=== PATIENT | female | born 1960 | race Caucasian/White ===

== ENCOUNTER 2019-02-12 09:13 | Observation (INO) ==
[2019-02-12] MEDS ORDERED: Isovue-370 500 ML BOTTLE IVP ONE (09:16)
[2019-02-12 09:36] LABS: Hematocrit 43.9 % (35.3-44.9); Hemoglobin 14.7 g/dL (11.5-15.4); Mean Corpuscular HGB Conc 33.5 g/dL (31.6-35.5); Mean Corpuscular Hemoglobin 28.6 pg (28.0-33.3); Mean Corpuscular Volume 85.4 fL (83.0-100.0); Mean Platelet Volume 11.7 fL (9.4-12.4); Platelet Count 105 K/mcL (140-400); Red Blood Count 5.14 M/mcL (3.82-4.97); Red Cell Distribution Width 13.5 % (11.5-14.5); White Blood Count 6.8 K/mcL (4.3-11.1)
--- NOTE | 2019-02-12 09:39 | Emergency Department Note ---
Disposition Clinical Impression: TIA (transient ischemic attack) Disposition: Admitted As Inpatient Condition: Fair Time of Disposition: 10:33 General Adult HPI - General Stated complaint: stroke symptoms Time Seen by Provider: 02/12/19 09:16 Nursing Notes Reviewed: Yes Vital Signs Reviewed: Yes - History of Present Illness HPI Narrative: I did see the patient immediately upon arrival and also spoke with the paramedics and the story is that she developed slurred speech this morning and she had last known normal at 805 this morning and the patient's symptoms still include some slurred speech according to the however she also has had left-sided weakness for the last 7 days. She has had slurred speech in the past. Patient denies any symptoms at this time. states that she did see her psychiatrist last month and they said she was unable to take medications on her own. states that she does not normally know the day of the week. The patient denies any localized numbness or weakness of the extremities at this time. She denies any slurred speech, facial droop or confusion however history is somewhat unreliable from the patient as she does not know the day of the week and does have some chronic confusion however she does have other parts of the history that she is able to give in a seemingly reliable fashion. She denies any fever, respiratory symptoms, blood in the urine or stool. According to the she has had frequent falls. Her fingerstick blood sugar was in the 200s according to paramedics. Social history: Stopped smoking 5 years ago, no alcohol or drugs Review of Systems: Constitutional: No fever Vision: No blurred vision ENT: No rhinorrhea Respiratory: No cough Allergic: No allergies : No blood in urine GI: No blood in stool Hematologic: + bruising Dermatologic: No skin rash Musculoskeletal: No pain in the extremities Neuro: No numbness of the extremities Physical Exam CONSTITUTIONAL: Alert and oriented X3, well-nourished, well appearing, in no apparent distress HEAD: Normocephalic; atraumatic. EYES: PERRL, no scleral icterus. NOSE: The nose is normal in appearance without rhinorrhea RESP: Normal chest excursion with respiration; breath sounds clear and equal bilaterally; no wheezes, rhonchi, or rales CARD: Regular rhythm, without murmurs, rub or gallop ABD: Non-distended; non-tender, soft,without rigidity, rebound or guarding SKIN: Normal for age and race; warm and dry; no apparent lesions Neuro: See NIH stroke scale. Some slurred speech with a stroke scale of 2 also based on not knowing day of the week ( states is chronic for her) Course Vital Signs Temperature 97.9 F 02/12/19 09:28 Pulse Rate 106 02/12/19 09:28 Respiratory Rate 18 02/12/19 09:28 Blood Pressure 140/78 02/12/19 09:28 O2 Sat by Pulse Oximetry 93 02/12/19 09:28 Temperature 97.9 F 02/12/19 09:28 Pulse Rate 106 02/12/19 09:28 Respiratory Rate 18 02/12/19 09:28 Blood Pressure 140/78 02/12/19 09:28 O2 Sat by Pulse Oximetry 93 02/12/19 09:28 Oxygen Delivery Oxygen Delivery Room Air Medical Decision Making - MDM Narrative Medical decision making narrative: Patient did go immediately to CT from the cot without going to the room first. I did speak with the radiologist who told me the CT scan is negative. CTA was not done because she does have an allergy to contrast which includes a rash. Based on her exam she does not have a new acute large vessel occlusion. We are notifying the stroke neurologist at this time and they will speak with the patient through the tele neurology system. Patient will be admitted to the hospital. Lab results are pending. She does give a fairly good history but thinks the day of the week is Sunday. She does know the month and the year. She is alert and does answer questions easily and readily. [id number] I see the patient on multiple occasions. I did speak with the patient and the family. I did review the EKG which shows sinus tachycardia with a rate of 104 but without acute ischemic change. The case was discussed with the hospitalist and the patient will be admitted for further evaluation of possible TIA. The stroke neurologist from [facility] agrees that thrombolytics are not indicated at this time. The stroke scale is 2 based on her not knowing the day of the week which is chronic and also the minimal slurred speech which states has also occurred multiple times in the past. At this time she is conversational. She does understand the need for admission. 1032 - Medical Records Medical records reviewed: Yes I reviewed the patient's medical records. - Lab Data Lab results reviewed: Yes I reviewed the patient's lab results. Result diagrams: 02/12/19 09:30 02/12/19 09:30 Lab Results 02/12/19 02/12/19 02/12/19 Range/Units 09:30 09:30 09:30 WBC 6.8 (4.3-11.1) K/mcL RBC 5.14 H (3.82-4.97) M/mcL Hgb 14.7 (11.5-15.4) g/dL Hct 43.9 (35.3-44.9) % MCV 85.4 (83.0-100.0) fL MCH 28.6 (28.0-33.3) pg MCHC 33.5 (31.6-35.5) g/dL RDW 13.5 (11.5-14.5) % Plt Count 105 L (140-400) K/mcL MPV 11.7 (9.4-12.4) fL PT 13.0 H (9.4-12.1) Seconds INR 1.1 Sodium 136 (136-145) mEq/L Potassium 3.9 (3.5-5.1) mEq/L Chloride 105 (98-107) mEq/L Carbon Dioxide 24 (23-29) mEq/L BUN 20 (8-23) mg/dL Creatinine 1.08 (0.60-1.20) mg/dL Est GFR ( Amer) > 60 (> 60) Est GFR (Non-Af Amer) 52 L (> 60) BUN/Creatinine Ratio 19 (6-26) Glucose 267 H (70-105) mg/dL Calculated Osmolality 294 (280-300) Calcium 8.5 L (8.6-10.3) mg/dL Troponin I < 0.03 (< 0.04) ng/mL - Radiology Data Radiology results reviewed: Yes I reviewed the patient's radiology results. Critical Care Time Critical Care Time: No NIH Stroke Scale - Level of Consciousness LOC: Alert - LOC Questions LOC Questions: Answers one correctly - LOC Commands LOC Commands: Performs both correctly - Best Gaze Best Gaze: Normal - Visual Visual: No visual loss - Facial Palsy Facial Palsy: Normal - Motor Arms Motor Arm-Left: No drift for 10 seconds Motor Arm-Right: No drift for 10 seconds - Motor Legs Motor Leg-Left: No drift for 5 seconds Motor Leg-Right: No drift for 5 seconds - Limb Ataxia Limb Ataxia: Normal, No Ataxia - Sensory Sensory: Normal - Best Language Best Language: No aphasia - Dysarthria Dysarthria: Mild, slurs some words - Extinction and Inattention Extinction and Inattention: Normal - NIHSS Total Score NIHSS Total Score: 2
[2019-02-12 09:44] LABS: INR 1.1
[2019-02-12 09:59] LABS: BUN/Creatinine Ratio 19 (6-26); Blood Urea Nitrogen 20 mg/dL (8-23); Calcium 8.5 mg/dL (8.6-10.3); Carbon Dioxide 24 mEq/L (23-29); Chloride 105 mEq/L (98-107); Glucose 267 mg/dL (70-105); Osmolality,Calculated 294 (280-300); Potassium 3.9 mEq/L (3.5-5.1); Sodium 136 mEq/L (136-145); Troponin I < 0.03 ng/mL (< 0.04); eGFR For African Americans > 60 (> 60); eGFR For Non-African Americans 52 (> 60)
[2019-02-12 11:31] LABS: Bilirubin,Urine Negative (Negative); Blood,Urine Negative (Negative); Clarity,Urine Clear (Clear); Color,Urine Yellow (Yellow); Glucose,Urine (UA) >=1000 mg/dL (Normal); Ketones,Urine Negative (Negative); Leukocyte Esterase,Urine Negative (Negative); Nitrite,Urine Negative (Negative); Protein,Urine Trace mg/dL (Neg-Trace); Specific Gravity,Urine 1.023 (1.010-1.025); Urobilinogen,Urine Normal (Normal)
--- NOTE | 2019-02-12 11:34 | Internal Med History&Physical ---
Date of Encounter: 02/12/19 Time of Encounter: 11:34 Internal Medicine - H&P: HPI Chief complaint: slurred speech History of present illness: Ms. Torres is a 58 year old female Hope presented to the ER with sudden SLURRED speech and frequent falls. They are staff reported that the patient have left-sided weakness for the last 7 days, however the patient and her brenda ghter denied any weakness in the left side, but they reported that the patient was visiting her daughter and then suddenly. The floor was no reported loss of consciousness, she denies weakness or tingling numbness, loss controlled of urine or stool. Family stated that her speech is different from her baseline other than that there is no significant abnormalities. stroke alert was called and OC team was involved in the patient care and decided that the patient is not candidate for thrombolytic treatment. At bedside The patient was alert and oriented to place and time and person, neurologically intact, for further evaluation and management of TIA Past Med Surg Social Fam HX - Past Medical History Medical history: non-contributory - Social History Smoking Status: Former smoker Smokeless Tobacco Status: No Alcohol use: none Drug use: none - Family History Brother Hx Family Endocrine Disorder: Yes (DM) Internal Medicine - H&P: Meds Atorvastatin Calcium [Lipitor] 20 mg PO DAILY 02/12/19 [History] Baclofen [Lioresal] 10 mg PO BID 02/12/19 [History] Gabapentin [Neurontin] 300 mg PO TID 02/12/19 [History] Haloperidol [Haldol] 5 mg PO HS 02/12/19 [History] Lisinopril 30 mg PO DAILY 02/12/19 [History] Lurasidone HCl [Latuda] 80 mg PO HS 02/12/19 [History] Pantoprazole Sodium [Protonix] 40 mg PO DAILY 02/12/19 [History] glipiZIDE [Glipizide] 20 mg PO BID 02/12/19 [History] hydrOXYzine HCl [Hydroxyzine HCl] 25 mg PO HS 02/12/19 [History] Allergy/AdvReac Type Severity Reaction Status Date / Time azithromycin Allergy Hives Verified 02/13/19 10:27 Penicillins Allergy Hives Verified 02/13/19 10:27 aspirin AdvReac Nausea Verified 02/13/19 10:27 All Systems PM: A 10-system review of systems was performed and is negative for pertinent findings except as documented above in the HPI. - Constitutional Vitals: Temp Pulse Resp BP Pulse Ox 97.9 F 106 18 140/78 93 02/12/19 09:28 02/12/19 09:28 02/12/19 09:28 02/12/19 09:28 02/12/19 09:28 General appearance: Present: A&O X 3 Exam: . - Head Head exam: Present: atraumatic, normocephalic - Neck Neck exam general surgery: Present: supple, trachea midline. Absent: lymphadenopathy - Respiratory Respiratory exam: Present: CTAB. Absent: accessory muscle use, rales, rhonchi, wheezes - Cardiovascular Cardiovascular exam: Present: RRR, +S1, +S2. Absent: diastolic murmur, gallop, rubs, systolic murmur - GI/Abdominal GI/Abdominal exam: Present: normal bowel sounds, soft, no peritoneal signs. Absent: distended, tenderness - Extremities Exam Extremities exam: Present: warm, radial pulses palpable and symmetrical. Absent: calf tenderness, cyanotic, pedal edema - Neurological Exam Neurological exam: Present: CN II-XII intact, oriented X3, no focal deficits. Absent: pronater drift, facial droop, speech deficit Internal Med - H&P Results - Labs CBC & Chem 7: 02/13/19 02:08 02/13/19 02:08 Labs: Short CBC 02/12/19 Range/Units 09:30 WBC 6.8 (4.3-11.1) K/mcL Hgb 14.7 (11.5-15.4) g/dL Hct 43.9 (35.3-44.9) % Plt Count 105 L (140-400) K/mcL BMP 02/12/19 09:30 Sodium 136 Potassium 3.9 Chloride 105 Carbon Dioxide 24 BUN 20 Creatinine 1.08 Glucose 267 H Calcium 8.5 L Cardiac Enzymes 02/12/19 Range/Units 09:30 Troponin I < 0.03 (< 0.04) ng/mL Urine 02/12/19 Range/Units 11:19 Urine Color Yellow (Yellow) Urine Clarity Clear (Clear) Urine pH 6.0 (5.0-8.0) pH Units Ur Specific [place] 1.023 (1.010-1.025) Urine Protein Trace (Neg-Trace) mg/dL Urine Glucose (UA) >=1000 H (Normal) mg/dL - Impressions ITS Impressions Head CT 02/12/19 09:17 IMPRESSION: 1.No acute intracranial abnormality. These findings were discussed with Bebeto Muniz at 9:33 a.m. 02/12/2019. D/ / Jt Paulson MD / Jt Paulson MD Interpreting Provider: Jt Paulson MD Chest X-Ray 02/12/19 10:02 IMPRESSION: 1. No active pulmonary disease. D/ / Jt Paulson MD / Jt Paulson MD Interpreting Provider: Jt Paulson MD - Assessment and Plan (1) TIA (transient ischemic attack) Current Visit: Yes Status: Acute Assessment and plan: There is inconsistency in the reported history, at that time patient is denying any weakness on the left side and denied having history of that, however the history of slurred speech with a concern for possible TIA PLAN: - Telemetry - MRI - Cardiac enzymes x 2 q 8hr - EKG now and in AM - 2D Echo - Carotid duplex - UA (2) Diabetes mellitus Current Visit: Yes Status: Acute Assessment and plan: we will restart the patient and insulin sliding scale with moderate coverage Qualifiers: Qualified Code(s): E11.9 - Type 2 diabetes mellitus without complications (3) Hyperlipidemia Current Visit: Yes Status: Acute Assessment and plan: we'll continue statin and obtain fasting lipid profile Qualifiers: Hyperlipidemia type: unspecified Qualified Code(s): E78.5 - Hyperlipidemia, unspecified (4) Hypertension Current Visit: Yes Status: Acute Assessment and plan: we'll continue home medication and continue to monitor blood pressure while inpatient and adjust regimen accordingly Qualifiers: Hypertension type: essential hypertension Qualified Code(s): I10 - Essential (primary) hypertension (5) GERD (gastroesophageal reflux disease) Current Visit: Yes Status: Acute Assessment and plan: we will continue home proton pump inhibitors Qualifiers: Esophagitis presence: without esophagitis Qualified Code(s): K21.9 - Gastro-esophageal reflux disease without esophagitis - Time Spent With Patient Total time spent is greater than 50% in coordination of care (as documented) at patient's floor/unit and/or counseling patient:
[2019-02-12] MEDS ORDERED: Naloxone 0.4 MG/ML INJ IVP PRN (13:28)
[2019-02-12] MEDS ORDERED: Ondansetron 4 MG/2 ML VIAL IVP PRN (13:42)
[2019-02-12] MEDS ORDERED: Perflutren Lipid Microsphere 1.3 ML in 0.9 % Sodium Chloride 8.7 ML IVP ONE (16:35)
[2019-02-12] MEDS ORDERED: Perflutren Lipid Microsphere 2 ML VIAL ONE (16:47)
--- NOTE | 2019-02-12 18:27 | Electrocardiograph Report ---
[facility] [employer] Test Date: 2019-02-12 Pat Name: Cheryl Torres Department: EXAM5 Room: [facility] Gender: F Restaurant Greeter: : 1960 Requested By: Bebeto Muniz Order Number: [id number] Reading MD: Caleb Michel Measurements Intervals [place] Rate: 104 P: 71 [place]: 190 QRS: -37 QRSD: 77 T: 57 QT: 331 QTc: 436 Interpretive Statements Sinus tachycardia Left axis deviation Low voltage, precordial leads Electronically Signed On 02-12-2019 18:25:12 EDT by Caleb Michel
[2019-02-12] MEDS ORDERED: Dextrose Gel 15 GM/37.5 ML TUBE PO PRN ×2 (22:36)
[2019-02-12] MEDS ORDERED: D5% in Water 1,000 ML IVC PRN (22:36)
[2019-02-12] MEDS ORDERED: *HR* Dextrose 50 % in Water (Syg) 50 ML SYRINGE IVP PRN (22:36)
[2019-02-12] MEDS: Gabapentin 300 MG CAPSULE PO SCH (23:13)
[2019-02-12] MEDS: Acetaminophen 325 MG TABLET PO PRN (23:14)
[2019-02-12] MEDS: hydrOXYzine pamoate 25 MG CAPSULE PO SCH (23:51)
[2019-02-12] MEDS: Insulin LISPRO 300 UNITS/3 ML VIAL SQ SCH (23:51)
[2019-02-13 02:30] LABS: Basophils % 0.3 %; Eosinophils # 0.1 K/mcL (0.0-0.6); Eosinophils % 1.9 %; Hematocrit 42.1 % (35.3-44.9); Hemoglobin 14.4 g/dL (11.5-15.4); Immature Granulocytes % 0.1 % (0-4); Lymphocytes # 2.4 K/mcL (0.6-4.6); Lymphocytes % 32.5 %; Mean Corpuscular HGB Conc 34.2 g/dL (31.6-35.5); Mean Corpuscular Hemoglobin 29.5 pg (28.0-33.3); Mean Corpuscular Volume 86.3 fL (83.0-100.0); Mean Platelet Volume 11.4 fL (9.4-12.4); Monocytes # 0.6 K/mcL (0.0-1.3); Monocytes % 8.5 %; Neutrophils # 4.2 K/mcL (1.6-8.9); Platelet Count 106 K/mcL (140-400); Red Blood Count 4.88 M/mcL (3.82-4.97); Red Cell Distribution Width 13.8 % (11.5-14.5); Segmented Neutrophils % 56.7 %; White Blood Count 7.4 K/mcL (4.3-11.1)
[2019-02-13 02:43] LABS: Alanine Aminotransferase 17 Units/L (7-52); Albumin 3.4 g/dL (3.5-5.7); Albumin/Globulin Ratio 1.4 (1.1-2.2); Alkaline Phosphatase 94 Units/L (34-104); Aspartate Amino Transferase 13 Units/L (13-39); BUN/Creatinine Ratio 19 (6-26); Blood Urea Nitrogen 17 mg/dL (8-23); Calcium 8.9 mg/dL (8.6-10.3); Carbon Dioxide 25 mEq/L (23-29); Chloride 105 mEq/L (98-107); Chol/HDL Ratio 3.3 (0-4.9); Cholesterol 118 mg/dL (< 200); Globulin 2.4 g/dL (2.4-3.5); Glucose 202 mg/dL (70-105); HDL Cholesterol 36 mg/dL (40-59); LDL Cholesterol,Calculated 67 mg/dL (0-99); Magnesium 1.9 mg/dL (1.6-2.6); Osmolality,Calculated 293 (280-300); Phosphorous 3.3 mg/dL (2.7-4.5); Potassium 3.9 mEq/L (3.5-5.1); Sodium 138 mEq/L (136-145); Total Protein 5.8 g/dL (6.4-8.9); Triglycerides 73 mg/dL (< 150); eGFR For African Americans > 60 (> 60); eGFR For Non-African Americans > 60 (> 60)
[2019-02-13 07:13] LABS: INR 1.1; Prothrombin Time 12.2 Seconds (9.4-12.1)
[2019-02-13 07:15] LABS: Activated Partial Thrombo Time 22.7 Seconds (26.0-36.0)
[2019-02-13] MEDS: Gabapentin 300 MG CAPSULE PO SCH ×3 (08:45→20:54)
[2019-02-13] MEDS: Insulin LISPRO 300 UNITS/3 ML VIAL SQ SCH ×4 (08:46→20:54)
--- NOTE | 2019-02-13 14:11 | Internal Med Progress Note ---
Hospitalist Progress Note - Encounter Date of Encounter: 02/13/19 Time of Encounter: 14:08 - Subjective Interval History: Patient was seen and examined at bedside. Patient was evaluated by PT recommending inpatient rehabilitation discussed with the patient who verbalized understanding - Exam Vitals: Temp Pulse Resp BP Pulse Ox 97.4 F L 98 18 118/76 95 02/13/19 11:58 02/13/19 11:58 02/13/19 11:58 02/13/19 11:58 02/13/19 11:58 Exam: Skin: Free of rash and discoloration. Eyes: Sclera is white. There is no discharge from eyes. ENMT: Oral/pharyngeal mucosa is normal in appearance. There is no discharge from nose or ears. Respiratory: Normal breath sounds with no crackles and wheezes bilaterally. CV: Heart is regular with no gallop or murmur. GI: Abdomen is flat and soft with no palpable mass or visceromegaly. : There is no tenderness in patient's flanks bilaterally. Neuro exam: He has good strength in upper and lower extremities. He has normal eye movements. Psychiatric: He has normal affect. His thought process is appropriate to the situation. - Assessment and Plan (1) TIA (transient ischemic attack) Current Visit: Yes Status: Acute Assessment and Plan: There is inconsistency in the reported history, at that time patient is denying any weakness on the left side and denied having history of that, however the history of slurred speech with a concern for possible TIA PLAN: - Telemetry - MRI - Cardiac enzymes x 2 q 8hr - EKG now and in AM - 2D Echo - Carotid duplex - UA 02/13 No focal deficits noted Carotid duplex with nonstenotic plaque bilaterally Cardiac echo with EF of 6065% Brain MRI with no acute infarct Urinalysis unremarkable Patient was evaluated by PT and OT recommending inpatient rehabilitation school social worker consulted and patient would likely place at signature (2) Diabetes mellitus Current Visit: Yes Status: Acute Assessment and Plan: Accu-Cheks before meals at bedtime insulin sliding scale with moderate coverage (3) Hyperlipidemia Current Visit: Yes Status: Acute Assessment and Plan: we'll continue statin and obtain fasting lipid profile (4) Hypertension Current Visit: Yes Status: Acute Assessment and Plan: we'll continue home medication and continue to monitor blood pressure while inpatient and adjust regimen accordingly (5) GERD (gastroesophageal reflux disease) Current Visit: Yes Status: Acute Assessment and Plan: we will continue home proton pump inhibitors - Time Spent with Patient Total time spent is greater than 50% in coordination of care (as documented) at patient's floor/unit and/or counseling patient: Internal Medicine: Result - Labs CBC & Chem 7: 02/13/19 02:08 02/13/19 02:08 Labs: Short CBC 02/13/19 Range/Units 02:08 WBC 7.4 (4.3-11.1) K/mcL Hgb 14.4 (11.5-15.4) g/dL Hct 42.1 (35.3-44.9) % Plt Count 106 L (140-400) K/mcL Neutrophils # 4.2 (1.6-8.9) K/mcL BMP 02/13/19 02:08 Sodium 138 Potassium 3.9 Chloride 105 Carbon Dioxide 25 BUN 17 Creatinine 0.89 Glucose 202 H Calcium 8.9 Liver Function 02/13/19 Range/Units 02:08 Total Bilirubin 1.0 (0.3-1.0) mg/dL AST 13 (13-39) Units/L ALT 17 (7-52) Units/L Alkaline Phosphatase 94 (34-104) Units/L Albumin 3.4 L (3.5-5.7) g/dL - ABG Interpretation ABG results: PT/INR, D-dimer PT 12.2 Seconds (9.4-12.1) H 02/13/19 06:46 - Impressions Impressions Brain MRI 02/12/19 13:26 IMPRESSION: No acute infarct. D/ / Adriel Griffith MD / Adriel Griffith MD Interpreting Provider: Adriel Griffith MD Echocardiogram 02/12/19 13:27 Impressions: LVEF 60-65%. Mild left ventricular diastolic dysfunction. Normal right ventricular structure and function. Mild aortic regurgitation. No pulmonary hypertension. Suboptimal images to detect PFO with saline contrast injection. Left Ventricular Wall Motion: Rest Echo Findings All wall segments showed normal motion. Findings: Study Quality * Technically adequate exam. ECG Findings * Normal sinus rhythm. Left Ventricle * LVEF 60-65%. * Normal LV chamber size, wall thickness and function. * Mild left ventricular diastolic dysfunction. * Definity echo contrast was used. Right Ventricle * Normal right ventricular structure and function. Left Atrium * Normal left atrial size. Right Atrium * Normal right atrial size. Aortic Valve * Aortic valve not well visualized. * No aortic stenosis. * Mild aortic regurgitation. Mitral Valve * No mitral regurgitation. * Mitral valve not well visualized. * No mitral stenosis. Tricuspid Valve * Tricuspid valve not well visualized. * Trace tricuspid regurgitation. * Estimated RA pressure is 3 mmHg. Pulmonic Valve * Pulmonic valve is not well visualized. * No pulmonic stenosis. * No pulmonic regurgitation. Pulmonary Artery * Pulmonary artery not well visualized. Aorta * Normally sized aortic root. Pericardium * There is no pericardial effusion present. Interatrial Septum * No evidence of PFO by color Doppler. IVC * Normal IVC dimensions and inspiratory collapse. Consult Discharge Plan - Plan Referrals: Marlee De León LOGGING TRACTOR OPERATOR [Advanced Practice Nurse] - (Appointment has been requested.) (3) Hyperlipidemia Qualifiers: Hyperlipidemia type: unspecified Qualified Code(s): E78.5 - Hyperlipidemia, unspecified (4) Hypertension Qualifiers: Hypertension type: essential hypertension Qualified Code(s): I10 - Essential (primary) hypertension (5) GERD (gastroesophageal reflux disease) Qualifiers: Esophagitis presence: without esophagitis Qualified Code(s): K21.9 - Gastro- esophageal reflux disease without esophagitis
[2019-02-13] MEDS: hydrOXYzine pamoate 25 MG CAPSULE PO SCH (20:54)
[2019-02-13] MEDS: Acetaminophen 325 MG TABLET PO PRN (21:13)
[2019-02-13] MEDS ORDERED: traMADol 50 MG TABLET PO ONE (23:09)
[2019-02-14] MEDS: Insulin LISPRO 300 UNITS/3 ML VIAL SQ SCH ×2 (09:12→12:51)
[2019-02-14] MEDS: Gabapentin 300 MG CAPSULE PO SCH ×2 (09:13→17:40)
[2019-02-14] MEDS ORDERED: traMADol 50 MG TABLET PO PRN (09:37)
[2019-02-14] MEDS ORDERED: Insulin LISPRO 300 UNITS/3 ML VIAL SQ SCH ×2 (14:21→14:22)
--- NOTE | 2019-02-14 14:24 | Internal Med Progress Note ---
Hospitalist Progress Note - Encounter Date of Encounter: 02/14/19 Time of Encounter: 14:22 - Subjective Interval History: Ms. Torres is a 58 year old female pt presented to the ER with sudden onset of slurred speech and frequent falls. Stroke alert was called and OC team was involved in the patient care and decided that the patient is not candidate for thrombolytic treatment. She was admitted in the hospital placed on veterinary pharmacologist. Her symptoms improved. Patient still complaining about generalized weakness and lethargic. - Exam Vitals: Temp Pulse Resp BP Pulse Ox 98.1 F 87 16 125/80 96 02/14/19 10:45 02/14/19 10:45 02/14/19 10:45 02/14/19 10:45 02/14/19 10:45 Exam: Gen: Alert, awake, Oriented to time,place and person Chest: Diminished breath sounds B/L, No wheezing, No crackles, No rales Heart: S1S2+ RRR No murmurs Abd: Soft, NT, BS +, No organomegaly Ext: No edema, pulses are palpable, No calf tenderness Neuro : No acute focal neuro deficits noticed.. No pronator drift, no foot drop noticed Skin: No rash. - Assessment and Plan (1) TIA (transient ischemic attack) Current Visit: Yes Status: Acute Assessment and Plan: MRI of head negative for CVA unable to start her ASA since she is allergic to it cont Lipitor (2) Diabetes mellitus Current Visit: Yes Status: Acute Assessment and Plan: Fairly controlled changed ISS to Medium Also started her on Levemir 15 U BID (3) Hyperlipidemia Current Visit: Yes Status: Acute Assessment and Plan: on Statin (4) Hypertension Current Visit: Yes Status: Acute Assessment and Plan: Stable BP with current meds (5) GERD (gastroesophageal reflux disease) Current Visit: Yes Status: Acute Assessment and Plan: on PPI (6) Physical deconditioning Current Visit: Yes Status: Acute Assessment and Plan: PT / OT eval recommend ECF placement CM / SW working on it waiting for approval (7) Depression Current Visit: Yes Status: Acute Assessment and Plan: cont home meds - Time Spent with Patient Total time spent is greater than 50% in coordination of care (as documented) at patient's floor/unit and/or counseling patient: Internal Medicine: Result - Labs CBC & Chem 7: 02/13/19 02:08 02/13/19 02:08 - ABG Interpretation ABG results: PT/INR, D-dimer PT 12.2 Seconds (9.4-12.1) H 02/13/19 06:46 Consult Discharge Plan - Plan Referrals: [facility]lee [facility] LPN [Advanced Practice Nurse] - (Appointment has been requested.) (2) Diabetes mellitus Qualifiers: Qualified Code(s): E11.9 - Type 2 diabetes mellitus without complications (3) Hyperlipidemia Qualifiers: Hyperlipidemia type: unspecified Qualified Code(s): E78.5 - Hyperlipidemia, unspecified (4) Hypertension Qualifiers: Hypertension type: essential hypertension Qualified Code(s): I10 - Essential (primary) hypertension (5) GERD (gastroesophageal reflux disease) Qualifiers: Esophagitis presence: without esophagitis Qualified Code(s): K21.9 - Gastro- esophageal reflux disease without esophagitis
[2019-02-14 15:05] VITALS: BP 154/79
--- NOTE | 2019-02-14 16:11 | Discharge Summary ---
- NOTES TO OUTPATIENT PROVIDER Notes to Outpatient Provider: f/u with PCP in one week. Date of Encounter: 02/14/19 Time of Encounter: 16:07 - Discharge Diagnosis (1) TIA (transient ischemic attack) Priority: Primary Status: Acute (2) Diabetes mellitus Priority: Secondary Status: Acute Qualifiers: Qualified Code(s): E11.9 - Type 2 diabetes mellitus without complications (3) Hyperlipidemia Priority: Secondary Status: Acute Qualifiers: Hyperlipidemia type: unspecified Qualified Code(s): E78.5 - Hyperlipidemia, unspecified (4) Hypertension Priority: Secondary Status: Acute Qualifiers: Hypertension type: essential hypertension Qualified Code(s): I10 - Essential (primary) hypertension (5) GERD (gastroesophageal reflux disease) Priority: Secondary Status: Acute Qualifiers: Esophagitis presence: without esophagitis Qualified Code(s): K21.9 - Gastro-esophageal reflux disease without esophagitis (6) Physical deconditioning Priority: Secondary Status: Acute (7) Depression Priority: Secondary Status: Acute Qualifiers: Depression Type: major depressive disorder Major depression recurrence: unspecified whether recurrent Active/Remission status: remission status unspecified Qualified Code(s): F32.9 - Major depressive disorder, single episode, unspecified Hospital course: Ms. Torres is a 58 year old female pt presented to the ER with sudden onset of slurred speech and frequent falls. Stroke alert was called and OC team was i nvolved in the patient care and decided that the patient is not candidate for thrombolytic treatment. She was admitted in the hospital placed on clinical research monitor. Her symptoms improved. Her head CT did not show any acute abnormalities. Brain MRI was done, which did not show any acute infarction. Her carotid Doppler came back as essentially normal. Her Echo showed LVEF 60-65% and mild left ventricular diastolic dysfunction. It seems pt have TIA. Pt was seen by PT/OT who recommended ECF placement for short-term rehab. Patient got approval to go to ECF today so will discharge her to ECF in stable condition now. - Time Spent with Patient Total time spent providing and/or coordinating discharge services: - Discharge Medications Prescriptions: New Insulin DETEMIR [Levemir] 15 unit SQ BID [id number] Continued Gabapentin [Neurontin] 300 mg PO TID Pantoprazole Sodium [Protonix] 40 mg PO DAILY Atorvastatin Calcium [Lipitor] 20 mg PO DAILY Baclofen [Lioresal] 10 mg PO BID Lisinopril 30 mg PO DAILY Lurasidone HCl [Latuda] 80 mg PO HS hydrOXYzine HCl [Hydroxyzine HCl] 25 mg PO HS Haloperidol [Haldol] 5 mg PO HS #7 tablet Changed glipiZIDE [Glipizide] 10 mg PO BID #0 Home Medications: Atorvastatin Calcium [Lipitor] 20 mg PO DAILY 02/12/19 [History] Baclofen [Lioresal] 10 mg PO BID 02/12/19 [History] Gabapentin [Neurontin] 300 mg PO TID 02/12/19 [History] Lisinopril 30 mg PO DAILY 02/12/19 [History] Lurasidone HCl [Latuda] 80 mg PO HS 02/12/19 [History] Pantoprazole Sodium [Protonix] 40 mg PO DAILY 02/12/19 [History] hydrOXYzine HCl [Hydroxyzine HCl] 25 mg PO HS 02/12/19 [History] Haloperidol [Haldol] 5 mg PO HS #7 tablet 02/14/19 [Rx] Insulin DETEMIR [Levemir] 15 unit SQ BID [id number] 02/14/19 [Rx] glipiZIDE [Glipizide] 10 mg PO BID #0 02/14/19 [Rx] Allergies/Adverse Reactions: Allergy/AdvReac Type Severity Reaction Status Date / Time azithromycin Allergy Hives Verified 02/13/19 10:27 Penicillins Allergy Hives Verified 02/13/19 10:27 aspirin AdvReac Nausea Verified 02/13/19 10:27 Date of admission: 02/12/19 10:39 Primary care physician: PCP NONE Consults: 02/12/19 12:56 Consult to Occupational Therapy [CONS] Routine Comment: Evaluate, develop and implement POC Reason for Consult: TIA Does patient have active BEDREST order?: No Is patient medically & hemodynamically stable?: Yes Patient assessed for mobility or mobilized this visit?: No Consult to Physical Therapy [CONS] Routine Comment: Evaluate, develop and implement POC Reason for Consult: TIA Does patient have active BEDREST order?: No Is patient medically & hemodynamically stable?: Yes Patient assessed for mobility or mobilized this visit?: No - Constitutional Vitals: Temp Pulse Resp BP Pulse Ox 97.3 F L 96 17 154/79 95 02/14/19 15:04 02/14/19 15:04 02/14/19 15:04 02/14/19 15:04 02/14/19 15:04 General appearance: Present: A&O X 3 Exam: Gen: Alert, awake, Oriented to time,place and person Chest: Diminished breath sounds B/L, No wheezing, No crackles, No rales Heart: S1S2+ RRR No murmurs Abd: Soft, NT, BS +, No organomegaly Ext: No edema, pulses are palpable, No calf tenderness Neuro : No acute focal neuro deficits noticed.. No pronator drift, no foot drop noticed Skin: No rash. - Patient Status Disposition: Transfer SNF Condition: Good Overall status at discharge: patient is back to baseline - Discharge Instructions Follow Up With: Marlee De León FURNA[employer] HELPER [Advanced Practice Nurse] - (Appointment has been requested.) Forms: ED Satisfaction Letter - Diet and Activity Activity: increase activity as tolerated
--- NOTE | 2019-02-14 16:16 | Physician Discharge Referral ---
[facility] Referral Info Transfer To: F Provider in Charge after Transfer: PCP Institutional Level of Care: Skilled - Diagnosis (1) TIA (transient ischemic attack) Status: Acute (2) Diabetes mellitus Status: Acute (3) Hyperlipidemia Status: Acute (4) Hypertension Status: Acute (5) GERD (gastroesophageal reflux disease) Status: Acute (6) Physical deconditioning Status: Acute (7) Depression Status: Acute - Transfer Medications Prescriptions: Haloperidol [Haldol] 5 mg PO HS #7 tablet Home Medications: Atorvastatin Calcium [Lipitor] 20 mg PO DAILY 02/12/19 [History] Baclofen [Lioresal] 10 mg PO BID 02/12/19 [History] Gabapentin [Neurontin] 300 mg PO TID 02/12/19 [History] Lisinopril 30 mg PO DAILY 02/12/19 [History] Lurasidone HCl [Latuda] 80 mg PO HS 02/12/19 [History] Pantoprazole Sodium [Protonix] 40 mg PO DAILY 02/12/19 [History] hydrOXYzine HCl [Hydroxyzine HCl] 25 mg PO HS 02/12/19 [History] Haloperidol [Haldol] 5 mg PO HS #7 tablet 02/14/19 [Rx] Insulin DETEMIR [Levemir] 15 unit SQ BID [id number] 02/14/19 [Rx] glipiZIDE [Glipizide] 10 mg PO BID #0 02/14/19 [Rx] Allergies/Adverse Reactions: Allergy/AdvReac Type Severity Reaction Status Date / Time azithromycin Allergy Hives Verified 02/13/19 10:27 Penicillins Allergy Hives Verified 02/13/19 10:27 aspirin AdvReac Nausea Verified 02/13/19 10:27 - Respiratory Orders Smoking Cessation: Smoking cessation has been advised. For more information, call the [place] Tobacco Quit Line at 7-033-PSFY-NOW. CERTIFICATION: I certify that the transfer of the above named patient to an Extended Care Facility is necessary for the continuing treatment of the diagnosis listed. The above information is true and accurate reflection of patient's current condition. Confidential - Redisclosure prohibited without a patient's written consent.
[2019-02-14] MEDS ORDERED: Insulin DETEMIR 100 UNIT/ML X5UNITS SQ SCH (21:00)
== END 2019-02-14 18:15 ==
LOC: 3BNU 09:13 → EMEROOARM 09:13 → SUATTDRO 10:39 → 3BNU 12:06
PROVIDERS: ADMIT Internal Medicine Nephrology; ATTEND Family Medicine